=== PATIENT | male | born 1965 | race African-American/Black ===

== ENCOUNTER 2022-11-28 08:46 | Inpatient (IN) | payer OTHER ==
[~2022-11-28] VITALS: Ht 185.4 cm; Wt 76.7 kg
[2022-11-28 09:40] LABS: BASOPHILS % 0.4 % (0.0-2.0); EOSINOPHILS % 0.5 % (0.0-5.0); HEMATOCRIT. 52.7 % (42.0-52.0); HEMOGLOBIN. 17.8 g/dL (14.0-18.0); LYMPHOCYTES % 17.3 % (20.0-50.0); MEAN CORPUSCULAR HEMOGLOBIN 29.4 pg (28.0-32.0); MEAN CORPUSCULAR VOLUME 86.7 fL (80.0-94.0); MEAN PLATELET VOLUME 9.9 fl (7.4-10.4); MONOCYTES % 11.6 % (2.0-8.0); NEUTROPHILS % 70.2 % (40.0-76.0); PLATELET 176 x1000/uL (130-400); RED BLOOD CELL COUNT 6.08 mill/uL (4.7-6.1); RED CELL DISTRIBUTION WIDTH 14.3 % (11.6-14.6)
[2022-11-28 09:42] LABS: INR 1.1; PROTHROMBIN TIME 11.8 sec (9.6-11.0)
[2022-11-28 09:46] LABS: CHLORIDE 102 mEq/L (98-107)
[2022-11-28 10:35] LABS: CLARITY URINE CLEAR (CLEAR); COLOR URINE DARK YELLOW (YELLOW); KETONES URINE TRACE (NEGATIVE); LEUKOCYTE ESTERASE URINE NEGATIVE (NEGATIVE); NITRITE URINE NEGATIVE (NEGATIVE); OCCULT BLOOD URINE NEGATIVE (NEGATIVE); PROTEIN URINE 3+ (NEGATIVE); SPECIFIC GRAVITY URINE 1.038 (1.005-1.030)
[2022-11-28] MEDS ORDERED: MORPHINE SULFATE 4 MG/ML CPJ (NOT FOR IM USE) IV ONE (11:00)
[2022-11-28] MEDS ORDERED: INSULIN GLARGINE 100 UNITS/ML SUBCUT NR (14:45)
[2022-11-28] MEDS ORDERED: DEXTROSE 50% WATER 50ML SYRINGE IV PRN (14:45)
[2022-11-28] MEDS ORDERED: ONDANSETRON HCL 4MG/2ML INJ IV PRN (14:45)
[2022-11-28] MEDS ORDERED: HYDRALAZINE HCL 100MG TABLET PO NR (14:45)
[2022-11-28] MEDS ORDERED: ACETAMINOPHEN 325MG TABLET PO PRN (14:45)
[2022-11-28] MEDS ORDERED: NALOXONE HCL 0.4MG/ML VIAL IV PRN (15:00)
[2022-11-28] MEDS ORDERED: HYDROCODONE/ACETAMINOPHEN 5/325MG TABLET PO PRN (15:00)
[2022-11-28] MEDS: AMLODIPINE 10MG TABLET PO SCH (16:41)
[2022-11-28] MEDS: BLOOD SUGAR DIAGNOSTIC STRIP TEST SCH ×2 (16:42→22:56)
[2022-11-28] MEDS: INSULIN LISPRO 100 UNITS/ML SUBCUT SCH ×2 (20:25→22:55)
[2022-11-28] MEDS: METOCLOPRAMIDE HCL 10MG/2ML VIAL IV SCH (20:25)
[2022-11-28] MEDS: INSULIN GLARGINE 100 UNITS/ML SUBCUT SCH (22:55)
[2022-11-28] MEDS: HYDRALAZINE HCL 100MG TABLET PO SCH (22:56)
[2022-11-29] VITALS (7 sets, daily range): BP systolic 114–187; BP diastolic 67–96
[2022-11-29] MEDS ORDERED: HYDRALAZINE HCL 50MG TABLET PO NR (00:45)
[2022-11-29] MEDS: METOCLOPRAMIDE HCL 10MG/2ML VIAL IV SCH ×4 (00:59→18:00)
[2022-11-29] MEDS: BLOOD SUGAR DIAGNOSTIC STRIP TEST SCH ×3 (06:24→17:20)
[2022-11-29] MEDS: HYDRALAZINE HCL 100MG TABLET PO SCH ×2 (06:24→14:34)
[2022-11-29] MEDS ORDERED: OMEPRAZOLE 20MG CAPSULE EXTENDED RELEASE PO SCH (07:20)
[2022-11-29] MEDS: INSULIN LISPRO 100 UNITS/ML SUBCUT SCH ×3 (07:50→17:50)
[2022-11-29] MEDS: AMLODIPINE 10MG TABLET PO SCH (10:12)
[2022-11-29] MEDS: INSULIN GLARGINE 100 UNITS/ML SUBCUT SCH (10:52)
[2022-11-29] MEDS ORDERED: HYDR100T26 PO (11:24)
[2022-11-29] MEDS ORDERED: LANTUSUD SUBCUT (11:24)
[2022-11-29] MEDS ORDERED: AMLO10TA80 PO (11:24)
[2022-11-29 17:32] LABS: *AMPHETAMINES SCREEN URINE NEGATIVE (NEGATIVE); *BARBITURATES SCREEN URINE NEGATIVE (NEGATIVE); *BENZODIAZEPINES SCREEN URINE NEGATIVE (NEGATIVE); *COCAINE SCREEN URINE NEGATIVE (NEGATIVE); CANNABINOID URINE SCREEN NEGATIVE (NEGATIVE); METHADONE URINE SCREEN NEGATIVE (NEGATIVE); OPIATES URINE SCREEN PRESUMTIVE POSITIVE (NEGATIVE); PHENCYCLIDINE URINE SCREEN NEGATIVE (NEGATIVE)
== END 2022-11-29 19:15 | disposition home or self-care (01) | DRG 48 ==
LOC: ER 08:46 → 6EST 12:30 → EDBEDREQTM 12:36 → EDBEDREQ 12:36 → EDBEDREQSVC 15:26 → ENRESERV 21:06
PROVIDERS: ADMIT Internal Medicine; ATTEND Internal Medicine
DX: E11.43 Type 2 diabetes mellitus with diabetic autonomic (poly)neuropathy (principal); E44.0 Moderate protein-calorie malnutrition; I16.0 Hypertensive urgency; I10 Essential (primary) hypertension; E11.65 Type 2 diabetes mellitus with hyperglycemia; E87.1 Hypo-osmolality and hyponatremia; K31.84 Gastroparesis; K57.90 Diverticulosis of intestine, part unspecified, without perforation or abscess without bleeding; I25.10 Atherosclerotic heart disease of native coronary artery without angina pectoris; Z68.22 Body mass index [BMI] 22.0-22.9, adult; Z79.4 Long term (current) use of insulin
CPT/HCPCS: 36415; 74176; 76700; 80053; 80305; 81003; 82962; 83036; 84484; 85025; 93005; 99285; J1815; J2270; J2765